=== PATIENT | female | born 1935 | race Two or more races ===

== ENCOUNTER 2018-02-08 10:38 | Emergency (ER) | payer OTHER ==
--- NOTE | 2018-02-08 11:02 | PDOC ---
Attending Attestation - HPI HPI: 02/08/18 13:32 The patient is a 83 year old female, with a significant PMH of HTN, HLD, dementia, anemia who presents to the emergency department complaining of a cold for one day that worsened last night. The patient endorses associated symptoms of fever, chills, cough, sore throat, body aches, non bilious non bloody vomiting. The patient notes no relief with Tylenol and currently feels nauseous. The patient denies chest pain, shortness of breath, headache and dizziness. Denies diarrhea and constipation. Denies dysuria, frequency, urgency and hematuria. Allergies: NKDA Past surgical history: None reported Social history: None reported PCP: Lit Mckeon Documentation prepared by Princess Stanton, acting as medical practice assistant for Norma Guajardo MD. - Physicial Exam PE: 02/08/18 13:33 GENERAL: The patient is in no acute distress. HEAD: Normal with no signs of trauma. EYES: PERRLA, EOMI, sclera anicteric, conjunctiva clear. ENT: Ears normal, nares patent, oropharynx clear without exudates. Moist mucous membranes. NECK: Normal range of motion, supple without lymphadenopathy, JVD, or masses. LUNGS: +Coarse breath sound. No wheezes, and no crackles. HEART:Regular rate and rhythm, normal S1 and S2 without murmur, rub or gallop. ABDOMEN: Soft, nontender, normoactive bowel sounds. No guarding, no rebound. No masses palpable. NEUROLOGICAL: Cranial nerves II through XII grossly intact. Normal speech. No focal neurological deficits. SKIN: Warm, Dry, normal turgor, no rashes or lesions noted. Documentation prepared by Princess Stanton, acting as medical practice assistant for Norma Guajardo MD. <Princess Stanton - Last Filed: 02/08/18 13:35> - Resident Resident Name: Cherry Maddox - ED Attending Attestation I have performed the following: I have examined & evaluated the patient, The case was reviewed & discussed with the resident, I agree w/resident's findings & plan, Exceptions are as noted - Medical Decision Making 02/08/18 11:44 Twelve-lead EKG was performed and reviewed by me. There is normal sinus rhythm with a normal rate. The axis is normal. The intervals are normal. There are no ST or T wave abnormalities. Impression: Normal twelve-lead EKG CXR - increased marking, no consolidation, no effusion, nml cardiomediastinal silhouette 02/11/18 20:00 Laboratory Tests 02/08/18 02/08/18 02/08/18 12:00 12:00 12:07 WBC 4.0 Hgb 11.8 Hct 34.3 Plt Count 214 Neutrophils % 63.7 Lymphocytes % 16.3 D BUN 13 Creatinine 1.0 Urine Blood Urine Nitrite Ur Leukocyte Esterase Urine WBC (Auto) Urine RBC (Auto) Influenza A (Rapid) Negative Influenza B (Rapid) Negative 02/08/18 13:00 WBC Hgb Hct Plt Count Neutrophils % Lymphocytes % BUN Creatinine Urine Blood 1+ H Urine Nitrite Negative Ur Leukocyte Esterase Negative Urine WBC (Auto) 1 Urine RBC (Auto) 10 Influenza A (Rapid) Influenza B (Rapid) Pt improved after fluids PO challenged Can discharge to home PMD follow up Likely viral syndrome <Norma Guajardo - Last Filed: 02/11/18 20:00>
[2018-02-08 11:07] VITALS: BMI 18.8
--- NOTE | 2018-02-08 11:07 | PDOC ---
History of Present Illness - General Chief Complaint: Cold Symptoms Stated Complaint: SICK Time Seen by Provider: 02/08/18 10:52 History Source: Patient Exam Limitations: No Limitations - History of Present Illness Initial Comments: 02/08/18 10:56 83 YOF with h/o dementia, HTN, HLD, anemia; p/w cold symptoms. Family notes she has been feeling unwell for the past day but last night this worsened significantly despite getting Tylenol. She has had cough, sore throat, fever, chills, whole-body aches without one area worse than other areas, one episode NBNB vomiting this morning, and malaise. She continues to be nauseated. She is UTD on all immunizations, had flu vaccination this fall but is supposed to get another one in February, is prone to bladder infections at times but not PNA. Past History - Past Medical History Allergies/Adverse Reactions: Allergies Allergy/AdvReac Type Severity Reaction Status Date / Time No Known Allergies Allergy Verified 02/08/18 10:57 Home Medications: Ambulatory Orders Donepezil HCl [Aricept -] 5 mg PO DAILY 12/29/14 Valsartan/Hydrochlorothiazide [Diovan Hct 320-12.5 mg Tab] 1 combo PO DAILY 12/03 Ondansetron [Zofran Odt -] 4 mg SL TID PRN #21 od.tablet 02/08/18 Anemia: Yes Dementia: Yes HTN: Yes Hypercholesterolemia: Yes - Immunization History Immunization Up to Date: Yes - Suicide/Smoking/Psychosocial Hx Smoking Status: No Smoking History: Never smoked Number of Cigarettes Smoked Daily: 0 Hx Alcohol Use: No Drug/Substance Use Hx: No Substance Use Type: None Review of Systems - Review of Systems Able to Perform ROS?: Yes Comments:: 02/08/18 11:37 GEN: fever, chills, malaise, no generalized weakness, or weight change HEENT: sore throat, no ear pain, vision change, or eye pain CV: no chest pain, palpitations, lightheadedness, syncope, or edema RESP: cough, no wheezing, or SOB GI: nausea, vomiting, diarrhea, no abdominal pain, constipation, or white/black/ bloody stool : no dysuria, hematuria, incontinence, retention, bleeding, or discharge MSK: no neck/back pain, muscle weakness/pain, or joint swelling/pain NEURO: no headache, seizure, vertigo, numbness, tingling, or focal weakness PSYCH: no substance use, no behavior change SKIN: no jaundice, no rash ROS otherwise negative except as noted in HPI *Physical Exam - Vital Signs Initial Vital Signs Temp Pulse Resp BP Pulse Ox 102.3 F H 84 18 166/98 96 02/08/18 10:57 02/08/18 10:57 02/08/18 10:57 02/08/18 10:57 02/08/18 10:57 02/08/18 11:38 GENERAL: tired appearing elderly female accompanied by family, thin but not cachectic, no distress, [place]-speaking HEENT: PERRLA, EOMI, slightly dry mucous membranes NECK/BACK: no midline ttp, no spinal stepoff or deformity, no hematoma, full ROM , neck supple CARDIOVASCULAR: regular rate/rhythm but with occasional ectopy, normal S1S2, no MGR, strong peripheral pulses, capillary refill <2 seconds, extremities wwp, no edema LUNGS/RESPIRATORY: no respiratory distress, CTAB GI/ABDOMEN: symmetric [id number], normoactive BS, soft, no ttp, no midline pulsatile masses : no CVA tenderness EXTREMITIES: no muscle atrophy, no acute deformity, no edema SKIN: warm and dry, no pallor, no jaundice, no rash, no bruising, no skin breakdown, no cuts, no lesions NEUROLOGICAL: GCS 15, CN II-XII grossly intact, 5/5 strength proximally and distally, no facial droop Heart Score/ECG Review #1 02/08/18 11:15 Sinus rhythm, rate 90, normal axis and intervals, no ST-T changes ED Treatment Course - LABORATORY CBC & Chemistry Diagram: 02/08/18 12:00 02/08/18 12:00 Medical Decision Making - Medical Decision Making 02/08/18 11:40 Pt p/w fever, chills, tiredness, body aches, cough, sore throat, nausea, vomiting. Initial Vital Signs Temp Pulse Resp BP Pulse Ox 102.3 F H 84 18 166/98 96 02/08/18 10:57 02/08/18 10:57 02/08/18 10:57 02/08/18 10:57 02/08/18 10:57 Exam: As noted in Physical Exam section. DDX IBNLT: influenza, PNA, bronchitis, COPD, asthma, CHF, other lung disease, viral URI (e.g. influenza), laryngitis, tracheitis, etc. W/U ordered: CXR EKG CBCD CMP UA UCx TX ordered: [facility] TONIO [place] EKG: Reviewed; results as noted in ECG Review section. CXR: Nothing acute Laboratory Tests 02/08/18 02/08/18 02/08/18 12:00 12:00 12:07 WBC 4.0 RBC 3.68 Hgb 11.8 Hct 34.3 MCV 93.3 MCH 32.1 MCHC 34.4 RDW 13.7 Plt Count 214 MPV 8.2 Absolute Neuts (auto) 2.6 Neutrophils % 63.7 Lymphocytes % 16.3 D Monocytes % 18.5 H D Eosinophils % 0.5 D Basophils % 1.0 Nucleated RBC % 0 Sodium 136 Potassium 3.9 Chloride 101 Carbon Dioxide 27 Anion Gap 7 L BUN 13 Creatinine 1.0 Creat Clearance w eGFR 53.21 Random Glucose 93 Calcium 8.6 Phosphorus 2.6 Magnesium 2.1 Total Bilirubin 0.4 AST 29 ALT 17 Alkaline Phosphatase 89 Total Protein 7.4 Albumin 3.9 Urine Color Urine Appearance Urine pH Ur Specific Hurst Urine Protein Urine Glucose (UA) Urine Ketones Urine Blood Urine Nitrite Urine Bilirubin Urine Urobilinogen Ur Leukocyte Esterase Urine WBC (Auto) Urine RBC (Auto) Influenza A (Rapid) Negative Influenza B (Rapid) Negative 02/08/18 13:00 WBC RBC Hgb Hct MCV MCH MCHC RDW Plt Count MPV Absolute Neuts (auto) Neutrophils % Lymphocytes % Monocytes % Eosinophils % Basophils % Nucleated RBC % Sodium Potassium Chloride Carbon Dioxide Anion Gap BUN Creatinine Creat Clearance w eGFR Random Glucose Calcium Phosphorus Magnesium Total Bilirubin AST ALT Alkaline Phosphatase Total Protein Albumin Urine Color Straw Urine Appearance Clear Urine pH 8.0 Ur Specific [place] 1.011 Urine Protein Negative Urine Glucose (UA) Negative Urine Ketones Trace H Urine Blood 1+ H Urine Nitrite Negative Urine Bilirubin Negative Urine Urobilinogen Negative Ur Leukocyte Esterase Negative Urine WBC (Auto) 1 Urine RBC (Auto) 10 Influenza A (Rapid) Influenza B (Rapid) Reassessment: Patient appears remarkably better, sitting up, drinking Gatorade and eating soup, smiling, talking. Vital Signs Temperature 99.1 F 02/08/18 14:37 Pulse Rate 92 H 02/08/18 14:37 Respiratory Rate 16 02/08/18 14:37 Blood Pressure 140/90 02/08/18 14:37 O2 Sat by Pulse Oximetry (%) 99 02/08/18 14:37 Workup is not concerning for emergency-level pathology at this time. The Pt has gotten significant relief of symptoms while in the ED. They are appropriate for discharge with close outpatient follow up. The Pt and family are comfortable with this plan and will follow up with their primary care provider in 1-3 days. They will take Tylenol and Zofran ODT as Rx. Specific return precautions are discussed and they will come back to the ER if necessary. *DC/Admit/Observation/Transfer Diagnosis at time of Disposition: Fever and chills, Cough Vomiting Qualifiers: Vomiting type: unspecified Vomiting Intractability: non-intractable Nausea presence: with nausea Qualified Code(s): R11.2 - Nausea with vomiting, unspecified - Discharge Dispostion Disposition: HOME Condition at time of disposition: Stable Decision to Admit order: No - Prescriptions Prescriptions: Ondansetron [Zofran Odt -] 4 mg SL TID PRN #21 od.tablet PRN Reason: Nausea And/Or Vomiting - Referrals Referrals: Lit Mckeon MD [Primary Care Provider] - - Patient Instructions Additional Instructions: You were seen in the ER for fever, vomiting, cough, and body aches. We did blood laboratories, an electrocardiogram, and a chest x-ray and there were no abnormal concerning results. We gave you medication for your symptoms, and IV fluids here in the ER. After our assessment, we do not believe you are having a medical emergency at this time, and we believe you are safe to go home. Please supervisor picking crew your prescription for Zofran from your pharmacy to take for nausea and vomiting as needed. Please follow up with your primary care provider in 1-3 days. Call their clinic as soon as possible, tell them you were seen in the ER, and tell them you need an appointment. If you have any new or worsening symptoms , please come back to the ER at any time (24 hours a day), especially for inability to breathe, chest pain, fainting, inability to drink and keep down liquids, or other symptoms you cannot control with [id number] medications and your antibiotic. If you are having severe or life threatening symptoms, or symptoms that make it unsafe to drive or have someone drive you, please call 911. - Post Discharge Activity
[2018-02-08] MEDS ORDERED: ACETAMINOPHEN 1000 MG/100 ML VIAL (NON FORMULARY) IVPB ONE (11:18)
[2018-02-08] MEDS ORDERED: SODIUM CHLORIDE 0.9% 500 ML INFUS.BAG IV ONE (11:18)
[2018-02-08] MEDS ORDERED: ONDANSETRON 4 MG/2 ML VIAL IVPUSH ONE (11:18)
[2018-02-08 12:40] LABS: EOS % 0.5 % (0-4.5); HEMATOCRIT 34.3 % (32.4-45.2); HEMOGLOBIN 11.8 GM/dL (10.7-15.3); LYMPH % 16.3 % (8-40); MCH 32.1 pg (25.7-33.7); MCHC 34.4 g/dl (32.0-36.0); MEAN CELL VOLUME 93.3 fl (80-96); MEAN PLT VOLUME 8.2 fl (7.5-11.1); MONO % 18.5 % (3.8-10.2); NEUT % 63.7 % (42.8-82.8); PLATELET COUNT 214 K/MM3 (134-434); RBC 3.68 M/mm3 (3.60-5.2); RDW 13.7 % (11.6-15.6)
[2018-02-08 13:05] LABS: ALBUMIN 3.9 g/dl (3.4-5.0); ALK PHOS 89 U/L (45-117); ANION GAP 7 MMOL/L (8-16); BILIRUBIN,TOTAL 0.4 mg/dL (0.2-1); BLOOD UREA NITROGEN 13 mg/dL (7-18); CALCIUM 8.6 mg/dL (8.5-10.1); CHLORIDE 101 mmol/L (98-107); CO2 27 mmol/L (21-32); GLUCOSE,RANDOM 93 mg/dL (74-106); MAGNESIUM 2.1 mg/dL (1.8-2.4); PHOSPHOROUS 2.6 mg/dL (2.5-4.9); POTASSIUM 3.9 mmol/L (3.5-5.1); SGOT/AST 29 U/L (15-37); SGPT/ALT 17 U/L (13-61); SODIUM 136 mmol/L (136-145); TOT PROT 7.4 g/dl (6.4-8.2)
[2018-02-08 13:09] LABS: URINE APPEARANCE CLEAR; URINE BILIRUBIN NEGATIVE (<2.0 mg/dL); URINE COLOR STRAW; URINE GLUCOSE (UA) NEGATIVE (NEGATIVE); URINE KETONE TRACE (NEGATIVE); URINE LEUK ESTERASE NEGATIVE (NEGATIVE); URINE NITRITE NEGATIVE (NEGATIVE); URINE PROTEIN NEGATIVE (NEGATIVE); URINE UROBILINOGEN NEGATIVE mg/dL (0.2-1.0)
--- NOTE | 2018-02-08 13:25 | EKG ---
Test Reason : Blood Pressure : / mmHG Vent. Rate : 090 BPM Atrial Rate : 090 BPM P-R Int : 174 ms QRS Dur : 076 ms QT Int : 352 ms P-R-T Axes : 079 067 059 degrees QTc Int : 430 ms NORMAL SINUS RHYTHM NORMAL ECG WHEN COMPARED WITH ECG OF 20-NOV-2014 16:54, PREMATURE ATRIAL COMPLEXES ARE NO LONGER PRESENT Confirmed by SIMON HERR MD ([id number]) on 02/08/2018 1:25:08 PM Referred By: Confirmed By:SIMON HERR MD
[2018-02-08 14:38] VITALS: BP 140/90; PULSE 92; TEMP 99.1
== END 2018-02-08 14:38 | disposition home or self-care (01) ==
LOC: JER 10:38
PROC: 3E033NZ Introduction of Analgesics, Hypnotics, Sedatives into Peripheral Vein, Percutaneous Approach (ICD-10-PCS; principal; 2018-02-08)
PROC: 3E033GC Introduction of Other Therapeutic Substance into Peripheral Vein, Percutaneous Approach (ICD-10-PCS; 2018-02-08)
DX: R50.9 Fever, unspecified (principal); R11.10 Vomiting, unspecified; I10 Essential (primary) hypertension; E78.5 Hyperlipidemia, unspecified; D64.9 Anemia, unspecified; F03.90 Unspecified dementia, unspecified severity, without behavioral disturbance, psychotic disturbance, mood disturbance, and anxiety
CPT/HCPCS: 36415; 71045-TC-FY; 80053; 81003; 81015; 83735; 84100; 85025; 87086; 87804; 93005; 93010; 99281-25; J0131

== ENCOUNTER 2018-08-23 09:43 | Emergency (ER) | payer OTHER ==
--- NOTE | 2018-08-23 09:54 | PDOC ---
History of Present Illness - General Chief Complaint: Lightheaded Stated Complaint: Lightheaded Time Seen by Provider: 08/23/18 09:49 History Source: Patient - History of Present Illness Initial Comments: 08/23/18 10:27 The patient is an 83 year old female with a PMH of Dementia -- who presents to ED with daughter after an episode this morning c/o shortness of breath, nausea and vomiting. Patient's daughter @ bedside assists in history and states that she recieved a call from patient this morning around 8:30 a.m. that patient was short of breath and vomiting. Patient's home health aide arrived shortly thereafter and measured patient's BP at 180's/100 and gave patient her daily Valsartan. Patient now continue to 08/23/18 10:38 Past History - Past Medical History Allergies/Adverse Reactions: Allergies Allergy/AdvReac Type Severity Reaction Status Date / Time No Known Allergies Allergy Verified 08/23/18 10:01 Home Medications: Ambulatory Orders Donepezil HCl [Aricept -] 5 mg PO DAILY 12/29/14 Valsartan/Hydrochlorothiazide [Diovan Hct 320-12.5 mg Tab] 1 combo PO DAILY 12/03 Ondansetron [Zofran Odt -] 4 mg SL TID PRN #21 od.tablet 02/08/18 Anemia: Yes Dementia: Yes HTN: Yes Hypercholesterolemia: Yes - Immunization History Immunization Up to Date: Yes - Suicide/Smoking/Psychosocial Hx Smoking Status: No Smoking History: Never smoked Number of Cigarettes Smoked Daily: 0 Hx Alcohol Use: No Drug/Substance Use Hx: No Substance Use Type: None ED Treatment Course - LABORATORY CBC & Chemistry Diagram: 08/23/18 10:32 08/23/18 10:32 Medical Decision Making - Medical Decision Making 08/23/18 10:04 Repeat BP @ bedside 162/98 08/23/18 10:41 SW in ED, will evaluate patient for possible increased home health service 08/23/18 13:26 Reassessed @ bedside Well appearing, requesting PO intake SW *DC/Admit/Observation/Transfer Diagnosis at time of Disposition: Lightheaded - Discharge Dispostion Disposition: HOME Condition at time of disposition: Good - Referrals Referrals: Lit Mckeon MD [Primary Care Provider] - - Patient Instructions Additional Instructions: Follow up with your primary care doctor in the next one week. Please return to the Emergency Department for any new/worsening/concerning symptoms. - Post Discharge Activity
[2018-08-23 10:01] VITALS: BMI 19.8
[2018-08-23] MEDS ORDERED: ONDANSETRON 4 MG/2 ML VIAL ONE (10:01)
--- NOTE | 2018-08-23 10:11 | PDOC ---
Attending Attestation - Resident Resident Name: Beronica Grider - ED Attending Attestation I have performed the following: I have examined & evaluated the patient, The case was reviewed & discussed with the resident, I agree w/resident's findings & plan, Exceptions are as noted - HPI HPI: 08/23/18 10:39 Ms Roberson is an 83 yo F who presents to the ER via EMS due to lightheadedness Pt daughter reports that she was in her usual state of health last night when she went to bed Pt awoke this morning with a complaint fo dizziness/lightheadednesas and nausea Pt called her daughter who alerted the home health aid who was almost immediately available to see this patient She was found seated in bed Pt did not walk around or fall (she reported that she could not walk) Pt denies chest pain At the time her symptoms were present this morning, the patient said that she knew her blood pressure was high Indeed, when her bp was checked it was >180s Pt was given her home medications Pt denies headache Currently, pt reports that she feels a bit better 08/23/18 10:43 08/23/18 10:48 Of note: pt has Alzheimer's dementia, unable to tolerate medications for this Pt lives alone in a longterm center Pt has a [employer] from 9-2 Pt has been found wandering the halls of her facility, when this happens neighbors call pt daughter Fire dept has been called multiple times because pt has forgotten to take the pots off of the stove Pt has been found climbing on the window elizabeth by the neighbors Per daughter, pt eats like a bird (very little) She is ambulatory and can feed herself 08/23/18 10:53 - Physicial Exam PE: 08/23/18 10:10 GENERAL: The patient is in no acute distress, cachectic. ENT: Ears normal, nares patent, oropharynx clear without exudates. Dry mucous membranes. NECK: Normal range of motion, supple LUNGS: Breath sounds equal, clear to auscultation bilaterally. No wheezes, and no crackles. HEART:Regular rate and rhythm, normal S1 and S2 without murmur, rub or gallop. ABDOMEN: Soft, nontender, non distended EXTREMITIES: Normal range of motion, no edema. NEUROLOGICAL: Cranial nerves II through XII grossly intact. Normal speech. Involuntary facial twitching equal strength in arms and legs No nystagmus SKIN: Warm, Dry, normal turgor, no rashes or lesions noted. 08/23/18 10:43 - Medical Decision Making 08/23/18 10:11 EKG - Twelve-lead EKG was performed and reviewed by me. There is normal sinus rhythm with a normal rate of 71 bpm. The axis is normal. The intervals are normal - pr:158ms, QRS:68ms, QTc:436ms. There are no ST or T wave abnormalities. 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 08/23/18 13:25 Upon re assessment Pt appears very well No complaints at this time Pt eating and anxious to go home Will discharge to home Follow up with PMD within 1 week S/W is applying for increased hours for [employer]
[2018-08-23] MEDS ORDERED: SODIUM CHLORIDE 0.9% 500 ML INFUS.BAG IV ONE (10:41)
[2018-08-23 11:05] LABS: EPI CELLS 0.2 /HPF (0-5/HPF); HYALINE CASTS 0 /lpf (0-8); URINE APPEARANCE CLEAR; URINE BACTERIA 1.4 /hpf (NEGATIVE); URINE BILIRUBIN NEGATIVE (NEGATIVE); URINE COLOR YELLOW; URINE GLUCOSE (UA) NEGATIVE (NEGATIVE); URINE KETONE NEGATIVE (NEGATIVE); URINE LEUK ESTERASE NEGATIVE (NEGATIVE); URINE NITRITE NEGATIVE (NEGATIVE); URINE PROTEIN NEGATIVE (NEGATIVE); URINE RBC 2 /hpf (0-4); URINE UROBILINOGEN 0.2 mg/dL (0.2-1.0); URINE WBC 1 /hpf (0-5)
[2018-08-23 11:23] LABS: BASO % 0.5 % (0-2.0); EOS % 0.3 % (0-4.5); HEMATOCRIT 33.1 % (32.4-45.2); HEMOGLOBIN 11.2 GM/dL (10.7-15.3); LYMPH % 12.6 % (8-40); MCH 32.1 pg (25.7-33.7); MCHC 33.8 g/dl (32.0-36.0); MEAN PLT VOLUME 7.9 fl (7.5-11.1); MONO % 6.6 % (3.8-10.2); PLATELET COUNT 217 K/MM3 (134-434); RBC 3.49 M/mm3 (3.60-5.2); RDW 13.2 % (11.6-15.6)
[2018-08-23 11:24] LABS: BILIRUBIN,TOTAL 0.5 mg/dL (0.2-1); BLOOD UREA NITROGEN 18.1 mg/dL (7-18); CALCIUM 8.8 mg/dL (8.5-10.1); MAGNESIUM 2.2 mg/dL (1.8-2.4); POTASSIUM 4.1 mmol/L (3.5-5.1); TOT PROT 7.6 g/dl (6.4-8.2)
[2018-08-23 12:40] VITALS: BP 161/88; PULSE 62; TEMP 98.1
--- NOTE | 2018-08-24 14:47 | EKG ---
Test Reason : Blood Pressure : / mmHG Vent. Rate : 071 BPM Atrial Rate : 071 BPM P-R Int : 158 ms QRS Dur : 068 ms QT Int : 402 ms P-R-T Axes : 068 063 055 degrees QTc Int : 436 ms POOR DATA QUALITY, INTERPRETATION MAY BE ADVERSELY AFFECTED NORMAL SINUS RHYTHM NORMAL ECG WHEN COMPARED WITH ECG OF 08-FEB-2018 11:15, NO SIGNIFICANT CHANGE WAS FOUND Confirmed by MD CADENCE, DANIEL ([id number]) on 08/24/2018 2:46:41 PM Referred By: SRINIVASAN Confirmed By:DANIEL VILA MD
== END 2018-08-23 14:40 | disposition home or self-care (01) ==
LOC: JER 09:43
PROC: 3E0337Z Introduction of Electrolytic and Water Balance Substance into Peripheral Vein, Percutaneous Approach (ICD-10-PCS; principal; 2018-08-23)
DX: R42 Dizziness and giddiness (principal); I10 Essential (primary) hypertension; E78.00 Pure hypercholesterolemia, unspecified; G30.8 Other Alzheimer's disease; F02.80 Dementia in other diseases classified elsewhere, unspecified severity, without behavioral disturbance, psychotic disturbance, mood disturbance, and anxiety; D64.9 Anemia, unspecified
CPT/HCPCS: 36415; 70450-TC; 71045-TC-FY; 80053; 81003; 82550; 83735; 84484; 85025; 87086; 93005; 93010; 99283-25

== ENCOUNTER 2022-06-19 11:28 | Emergency (ER) | payer OTHER ==
[2022-06-19 11:50] VITALS: BMI 19.3
[2022-06-19] MEDS ORDERED: SODIUM CHLORIDE 500 ML IV STA (12:30)
[2022-06-19 13:21] LABS: HEMATOCRIT 35.3 % (32.4-45.2); HEMOGLOBIN 12.3 GM/dL (10.7-15.3); MCH 32.3 pg (25.7-33.7); MCHC 34.9 g/dl (32.0-36.0); MEAN CELL VOLUME 92.6 fl (80-96); PLATELET COUNT 247 10^3/uL (134-434); RBC 3.82 M/mm3 (3.60-5.2); RDW 12.9 % (11.6-15.6); WHITE BLOOD COUNT 3.6 K/mm3 (4.0-10.0)
[2022-06-19 13:49] LABS: POTASSIUM 3.2 mmol/L (3.5-5.1)
[2022-06-19 13:55] LABS: CALCIUM 9.6 mg/dL (8.5-10.1)
[2022-06-19 13:56] LABS: ALBUMIN 3.7 g/dl (3.4-5.0); BLOOD UREA NITROGEN 23.3 mg/dL (7-18)
[2022-06-19 13:59] LABS: CREATININE 1.1 mg/dL (0.55-1.3)
[2022-06-19 14:00] LABS: BILIRUBIN,TOTAL 0.7 mg/dL (0.2-1)
[2022-06-19 14:02] LABS: TOT PROT 7.8 g/dl (6.4-8.2)
[2022-06-19] MEDS ORDERED: ALBUTEROL SO4 2.5/IPRATROPIUM 0.5 INH SOL 3 ML VIAL.NEB. NEB ONE ×2 (14:23→14:30)
[2022-06-19] MEDS ORDERED: POTASSIUM CHLORIDE ORAL LIQUID 20 MEQ/15 ML PO ONE (14:25)
[2022-06-19] MEDS ORDERED: POTASSIUM CHLORIDE ORAL LIQUID 20 MEQ/15 ML ONE (14:31)
[2022-06-19 15:05] LABS: VENOUS BASE EXCESS 7.1 mmol/L (-2-2); VENOUS PCO2 47.9 mmHg (38-52); VENOUS PH 7.447 (7.310-7.410)
[2022-06-19 15:08] VITALS: RESP 20; TEMP 97.7
[2022-06-19 15:15] LABS: EPI CELLS 12 /uL (0-25.1); HYALINE CASTS 1 /uL (0-3.1); PH,URINE 5.5 (5.0-8.0); URINE APPEARANCE CLEAR; URINE BACTERIA 10 /uL (0-1359); URINE BILIRUBIN NEGATIVE (NEGATIVE); URINE COLOR YELLOW; URINE GLUCOSE (UA) NEGATIVE (NEGATIVE); URINE KETONE 1+ (NEGATIVE); URINE LEUK ESTERASE NEGATIVE (NEGATIVE); URINE NITRITE NEGATIVE (NEGATIVE); URINE PROTEIN TRACE (NEGATIVE); URINE RBC 13 /uL (0-23.9); URINE UROBILINOGEN 0.2 mg/dL (0.2-1.0); URINE WBC 10 /uL (0-25.8)
[2022-06-19 16:20] LABS: ANISOCYTOSIS 1+; MACROCYTOSIS 0
[2022-06-19 16:55] VITALS: BP 138/71; PULSE 86
== END 2022-06-19 17:23 | disposition home or self-care (01) ==
LOC: JER 11:28
PROC: 3E0337Z Introduction of Electrolytic and Water Balance Substance into Peripheral Vein, Percutaneous Approach (ICD-10-PCS; principal; 2022-06-19)
PROC: 3E0F7GC Introduction of Other Therapeutic Substance into Respiratory Tract, Via Natural or Artificial Opening (ICD-10-PCS; 2022-06-19)
DX: R05.9 Cough, unspecified (principal); R50.9 Fever, unspecified; Z20.822 Contact with and (suspected) exposure to COVID-19
CPT/HCPCS: 0241U-QW; 36415; 71045-TC-FY; 80053; 81003; 82803; 84484; 85025; 93005; 93010; 99285-25